=== PATIENT | male | born 1975 | race Asian ===

== ENCOUNTER 2024-11-14 09:02 | Outpatient (AMB) | payer OTHER, SELFPAY ==
--- NOTE | 2024-11-14 09:17 | MHC.OFFVIS ---
Intake Visit Reasons: numbness tingling left LE Allergies lisinopril Allergy (Unknown, Verified 11/07/24 08:28) Unknown HPI Comments Details: The patient is a 48-year-old male presenting with episodes of transient left-sided numbness and confusion. These episodes began approximately two months ago and are characterized by a sudden onset of numbness starting from the left side of the head, extending to the left foot, with each episode lasting about 40 seconds. The patient reports a concurrent state of confusion during these events but denies any headache or pain. He mentions the occurrence of these symptoms four times, notably once while driving. The temporal nature of the symptoms and lack of pain or headaches are noted. There is a history of multiple MRIs of the brain without any significant findings. The patient?s condition appears stable without progression at the time of this visit. COUNT INCLUDES THE [facility] Medical History (Updated 11/14/24 @ 09:21 by Conner Teran MD) Umbilical hernia Vitamin D deficiency Vitamin B12 deficiency OAB (overactive bladder) HLD (hyperlipidemia) Hypertension Chronic tension-type headache, not intractable Allergic rhinitis Numbness and tingling of left lower extremity Surgical History (Updated 11/07/24 @ 08:30 by Ilya Chavez CMA) H/O sinus surgery H/O cystoscopy Family History (Updated 11/07/24 @ 08:30 by Ilya Chavez CMA) Father Hypertension Review of Systems Const Details: - Neurological: Reports episodic left-sided numbness and confusion; denies headache and pain. - General: Denies disorientation outside of episodes. Physical Exam Neuro Other: Mental Status: Alert and oriented to person, place, and time. Normal attention. Normal spontaneous speech, fluency, and comprehension. No obvious issues with mood and memory. Affect is appropriate. Cranial Nerves: CN II: Visual tamez full to confrontation, visual acuity intact. CN III, IV, : Pupils equal, round, reactive to light and accommodation. Extraocular movements are normal. CN V: Facial sensation is normal. CN VII: Facial movements symmetrical. CN VIII: Hearing intact to bedside conversation is normal. CN IX, X: Palate elevates symmetrically. CN XI: Shoulder shrug and head turn symmetrical. CN XII: Tongue midline without atrophy or fasciculations. Motor: Bulk and tone normal in all extremities. No significant muscle weakness in arms and legs. No drift. Reflexes: Deep tendon reflexes 2+ and symmetric. Plantar response down-going bilaterally. Coordination: Jwyfum-[id number] and aqck-xs-aqtu testing normal. No dysmetria. Gait and Station: No obvious gait abnormality. No ataxia or instability. Extrapyramidal: Full facial expressions and blinking. No rigidity. Movements are appropriate with no tremor or abnormality. Speech: Normal; no dysarthria or tremor. Assessment & Plan Assessment & Plan (1) Seizure disorder: Code(s): G40.909 - Epilepsy, unspecified, not intractable, without status epilepticus Category: Medical Plan Impression and recommendations: 48 years old man who reported stereotypical episodes of having left-sided numbness with confusion lasting for less than a minute without any pain. He said that he had couple of MRIs of brain without any explanation. His examination was unremarkable. An EEG was requested rule out seizure disorder and he was advised to bring CTA of his brain MRI for review. Orders: Orders EEG electroencephalogram Today G40.909 - Epilepsy, unspecified, not intractable, without status epilepticus Coding Level of Care Code New Pt Level 4 (90125) Diagnoses Seizure disorder G40.909
--- OUTSIDE RECORDS SUMMARY | 2024-11-14 09:44 | XMS_ITS | Clinical Summary ---
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 Not on nick e 07/18/2022 Are you concerned about learning? Not on file 07/18/2022 No 07/18/2022 No 07/18/2022 Digital Access Answer Date Recorded No 08/16/2022 No 08/16/2022 No 08/16/2022 Reliable internet access at home? Not on file 08/16/2022 Device with a working camera? Not on file Sex and Gender Information Value Date Recorded Sex Assigned at Not on file Legal Sex Male 2:18 PM EST Gender Identity Not on file Sexual Orientation Not on file Plan of Treatment Health Maintenance Due Date Last Done Comments LIPID PANEL 1975 DEPRESSION SCREENING 1987 SMOKING Hx and SMOKELESS TOBACCO SCREENING 12/25/1988 HEPATITIS C SCREENING 12/25/1993 HIV ONE-TIME SCREENING (18-6 5 YEARS) 12/25/1993 COLOGUARD 12/25/2020 COLONOSCOPY 12/25/2020 COLORECTAL CANCER SCREENING 12/25/2020 FIT TEST 12/25/2020 FOBT 12/25/2020 SIGMOIDOSCOPY 12/25/2020 VIRTUAL COLONOSCOPY 12/25/2020 Adult Td,Tdap Booster 03/21/2023 03/21/2013 , 07/28/2008, 05/18/2008 COVID-19 VACCINE (2023-2 5 season) 2023 08/08/2020, 07/18/2020 HEPATITIS A VACCINES Aged Out 03/20/2011, 10/23/2008 No longer eligible based on patient's age to complete this topic HIB VACCINES Aged Out No longer eligi ble based on patient's age to complete this topic MENINGOCOCCAL VACCINES (ACWY) Aged Out No longer eligible based on patient's age to complete this topic MENINGOCOCCAL VACCINES (B) Aged Out N o longer eligible based on patient's age to complete this topic PNEUMOCOCCAL VACCINES (0-49 years) Aged Out No longer eligible b ased on patient's age to complete this topic Medical Devices Not on file Insurance [facility] NON NSPG PCP [employer] [facility] NON NSPG PCP [employer] NON NSPG PCP [employer] [facility] NON NSPG PCP [employer]CIAL [facility] NON NSPG PCP [employer] NON NSPG PCP [employer]CIAL [facility] NON NSPG PCP [employer] COMM[employer]CIAL [facility] NON NSPG PCP [employer] [facility] NON NSPG PCP [employer] 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 It is not the complete legal health record.[facility]
--- OUTSIDE RECORDS SUMMARY | 2024-11-14 09:44 | XMS_ITS | Clinical Summary ---
Author Organization [facility] Address [address] [place] [address] Care Team Providers Care Rn Documentation Name Role Phone Abigail Urrutia CAMMY Primary Care Provider Source Comments PLEASE NOTE, if this patient is a minor, it may be UNLAWFUL to discuss sensitive information that is contained in these records (such as FAMILY PLANNING, MENTAL HEALTH or SUBSTANCE ABUSE) with the minor patient's parent or other person without the patient's specific authorization.[facility] Allergies No known active allergies Medications ibuprofen (ADVIL,MOTRIN) 600 mg tablet Take 1 Tab by mouth 3 (three) times daily as needed for pain. Take wit h food. 90 Tab 1 6 Active cholecalciferol, vitamin D3, 2,000 unit capsuleIndications :Vitamin D deficiency Take 1 Cap by mouth once daily. 90 Cap 3 6 Active oxybutynin (DITROPAN-XL) 5 mg 24 hr tabletIndications: OAB (overactive bladder) Take 1 Tab by mouth once daily. Swallow whole. Do not break, crush, or chew. 30 Tab 2 6 Active sildenafil (VIAGRA) 100 mg tabletIndications: Erectile dysfunction due to arterial insufficiency Take 1 Tab by mouth once daily as needed for erectile dysfunction. 10 Tab 0 6 Active cetirizine (ZYRTEC) 10 mg tabletIndications: Perennial allergic rhinitis, unspecified allergic rhinitis trigger Take 1 Tab by mouth once daily. 30 Tab 1 6 Active fluticasone (FLONASE) 50 mcg/actuation nasal sprayIndications:P erennial allergic rhinitis, unspecified allergic rhinitis trigger Place 1 [place] into the nostril(s) once daily 16 g 1 7 Active simvastatin (ZOCOR) 10 mg tablet Take 1 Tab by mouth nightly at bedtime Further refills requires appt with new PCP 30 Tab 8 Active lisinopril (PRINIVIL,ZESTRIL) 20 mg tabletIndications: Essential hypertension TAKE 1 TAB BY MOUTH ONCE DAILY FURTHER REFILLS REQUIRES APPT WITH NEW PCP 30 Tab 8 Active Active Problems Problem Noted Date Diagnosed Date OAB (overactive bladder) 11/16/2015 Overview (11/16/2015): F/u urology Erectile dysfunction due to arterial insufficien cy 11/16/2015 Seborrheic dermatitis of scalp 05/30/2014 Hyperlipidemia LDL goal <100 03/22/2013 HTN (hypertension) 11/15/2012 Allergic rhinosinusitis 11/10/2012 Overview (06/28/2014): S/p Bilateral endoscopic maxillary antrostomy with tissue removal from the maxillary sinus and bilateral endoscopic anterior ethmoidectomies for chronic maxillary and anterior ethmoid sinusitis 08/2013. Acne 11/10/2012 Bilateral hydrocele 04/10/2011 Overview (08/08/2015): US 04/10/11 revealed small simple right hydrocele. Repeat US 08/01/15 = bilateral hydroceles small left, small to mod right. Vitamin D deficiency 12/20/2010 Overview (01/05/2013): =17. History of kidney stones 10/23/2008 Overview (01/05/2013): Urology f/u. Cystoscopy with ureteroscopy & lithotripsy for ureteral calculus 01/2010. History of positive PPD 08/28/2008 Overview (08/23/2016): =10 mm 08/03/08. Tx at [facility] x 9 months with INH in 2009. Negative CXR 08/16/15 at [facility] Resolved Problems Problem Noted Date Diagnosed Date Resolved Date Elevated LFTs 01/07/2013 06/04/2015 Ingrown left greater toenail 11/10/2012 01/05/2013 Immunizations Immunization Administration Dates Next Due Flu, Preservative Free 12/27/2015 Hep A, adult 03/20/2011,10/23/2008 Hep B, Adult/Adol (SINLHIS-W-JOETJ/RECOMBIVAX-ADULT) 08/02/2010,10/23/2008,08/28/2008 INFLUENZA, SEASONAL, INJECTABLE 03/21/2013,12/17 MMR (MMR II/Priorix) 07/28/2008,05/18/2008 TDAP 03/21/2013 Td (adult),2 Lf tetanus toxo id (TDVAX), preservative free 07/28/2008,05/18/2008 Varicella (Varivax), Live Vaccine 08/15/2016 Social History Tobacco Use Types Packs/Day Years Used Date Smoking Tobacco: Never Smokeless Tobacco: Never Alcohol Use Standard Drinks/Week Comments No 0 (1 standard drink = 0.6 oz pur e alcohol) Social Connections Answer Date Recorded Connectedness 0 12/09/2023 Financial Resource Strain Answer Date R ecorded Financial Resource Strain 0 2018 Stress Answer Date Recorded Stress 0 11/13/2018 Physical Activity Answer Date Recorded Physical Activity 0 11/13/2018 Food Insecurity Answer Date Recorded Food 0 12/17/2023 Transportation Needs Answer Date Record ed Transportation 0 11/13/2018 Housing Stability Answer Date Recorded Housing 0 11/13/2018 Safety and Environment Answer Date Beka rded Safety 0 11/13/2018 Utilities Answer Date Recorded Utilities 0 11/13/2018 Employment Answer Date Recorded Stress 0 12/09/2023 Sex and Gender Information Value Date Recorded Sex Assigned at Not on file Legal Sex Male 11:36 AM PDT Gender Identity Not on file Sexual Orientation Not on file Last Filed Vital Signs Vital Sign Reading Time Taken Comments Blood Pressure 147/100 05/06/2016 3:34 PM EST Pulse 72 05/06/2016 3:34 PM EST Temperature 36.4 C (97.5 F) 05/06/2016 3:34 PM EST Respiratory Rate 12 05/06/2016 3:34 PM EST Oxygen Saturation 97% 11/16/2015 2:03 PM EDT Inhaled Oxygen Concentration - - Weight 78.5 kg (173 lb) 05/06/2016 3:34 PM EST Height 157.5 cm (5' 2 ) 05/06/2016 3:34 PM EST Body Mass Index 31.64 05/06/2016 3:34 PM EST Plan of Treatment Not on file Insurance [place] Care Teams Rn Documentation Relationship Specialty Start Date End Date Abigail Urrutia FNP [address] [place] [address] PCP - General 10/14/18
--- OUTSIDE RECORDS SUMMARY | 2024-11-14 09:44 | XMS_ITS | Clinical Summary ---
Author Organization [facility] [address] [facility] lding Address [address] [place] [address] Phone Care Team Providers Care Graduate Student Instructor Name Role Phone Cheryle Whitman MD Primary Care Provider Allergies Active Allergy Reactions Criticality Noted Date Comments Lisinopril Cough 12/23/2022 Pollen Extracts 07/29/2022 Medications fluticasone propionate (FLONASE) 50 mcg/actuation nasal spray SPRAY 1 SPRAY IN EACH NOSTRIL 2 TIMES DAILY 07/29/2022 Active valsartan (DIOVAN) 80 mg tablet Take 1 tablet (80 mg total) by mouth 1 (one) time each day. 90 each 08/24/2024 Active cholecalciferol (VITAMIN D-3) 25 mcg (1,000 unit) capsule Take 1 capsule (1,000 Units total) by mouth 1 (one) time each day. 90 capsule 1 08/24/2024 Active metroNIDAZOLE (METROGEL) 0.75 % gelIndications: Rosacea Apply twice daily to rosacea 45 g 2 08/24/2024 Active aspirin 81 mg EC tablet Take 1 tablet (81 mg total) by mouth 1 (one) time each day. 09/04/2024 Active Vitamin B-12 1,000 mcg tablet Take 1 tablet (1,000 mcg total) by mouth 1 (one) time each day. 90 tablet 1 10/04/2024 Active Active Problems Problem Noted Date Diagnosed Date Umbilical hernia 08/24/2024 Vitamin B12 deficiency 06/03/2021 Erectile dysfunction 02/03/2018 Hydrocele, bilateral 02/03/2018 Overview (12/17/2023): US 04/10/11 - smal simple R hydroceles. Repeat US 08/01/15 bilateral: small L, small to moderate R OAB (overactive bladder) 02/03/2018 Overview (12/17/2023): Follow with Urology Vitamin D deficiency 02/03/2018 Chronic tension-type headache, not intractable 0 12/16/2017 Allergic rhinitis 11/24/2017 Overview (12/17/2023): Chronic sinusitis-revision b/l endoscopic total ehtmoidectomy, max antrostomy, spheindotomy, b/l balloon frontal sinusotomy, placement of propel stents and brain lab optical tracking guidance- 03/[address] Daily Essential hypertension, benign 11/13/2017 Hyperlipidemia 11/13/2017 Overview (12/17/2023): 05/2019- ASCVD 2.1% Encounters Date Type Department Care Team Description 10/04/2024 8:00 AM EDT Office Visit Adult [facility] [address] [place] [phone] Lang Mckinley PA Paresthesia of left upper and lower extremity (Primary Dx); Dizziness; Essential hypertension, benign; Hyperlipidemia, unspecified hyperlipidemia type 09/30/2024 Telephone Adult [facility] [address] [place] [phone] Cheryle Whitman MD Numbness; Eye Pain 09/09/2024 10:30 AM EDT Office Visit Adult [facility] [address] [place] [phone] Cheryle Whitman MD Hospital discharge follow-up (Primary Dx); Numbness; Paresthesias; Primary hypertension; Mixed hyperlipidemia 09/06/2024 Telephone Adult [facility] [address] [place] [phone] Cheryle Whitman MD Hospital Follow-up 08/24/2024 7:30 AM EDT Office Visit Adult Medicine - [place] [address] [place] [phone] Lang Mckinley PA Swelling of lower extremity (Primary Dx); Benign hypertension; Rosacea 08/22/2024 Telephone Adult Medicine - [place] [address] [place] [phone] Cheryle Whitman MD ER Follow-Up; Lower Extremity Edema (Both legs) from Last 3 Months Immunizations Name Administration Dates Next Due Hep A, Unspecified 03/21/2013 Hepatitis A Adult (Havrix; V aqta) 19yo and older 03/20/2011,10/23/2008 Hepatitis B Pediatric (Enger ix B; Recombivax HB) to less than 20 yo 08/02/2010,10/23/2008,08/28/2008 Influenza Quadravalent, MDCK , 0.5ml, preservative free (Flucelvax) 6mo and older 01/30/2023,04/03/2021,06/10/2019 Influenza trivalent, MDCK, 0 .5mL, preservative free (Flucelvax) 6mo and older 05/17/2024 Influenza trivalent, with pr eservative (Fluzone; Afluria) 6mo and older 12/27/2015 MMR, measles mumps and rubel la Live (Priorix; M-M-R II) 12mo and older 07/28/2008,05/18/2008 Td Tetanus diptheria (Tdvax) 7yo and older 07/28,05/18/2008 Tdap Tetanus diptheria acell ular pertussis (Boostrix; Adacel) 7yo and older 07/29/2022,03/21/2013 Varicella live (Varivax) 12mo and older 08/16/19 17 Surgical History Surgery Date Site/Laterality Comments CYSTOSCOPY 01/2010 PROCEDURE: HISTORICAL CYSTOSCOPY; COMMENT: Ureteroscopy & lithotripsy- stones OTHER SURGICAL HISTORY PROCEDURE: HISTORY OTHER; COMMENT: Dr. Traore - SINUS SURGERY Medical History Medical History Date Comments Acne 02/03/2018 DX:Acne Allergic rhinitis 11/24/2017 DX:Allergic rh initis; COMMENT: Allergy shots with Dr. Daily Chronic tension-type headach e, not intractable 12/16/2017 DX:Chronic tension-type head ache, not intractable Dizziness 12/16/2017 DX:Dizziness Erectile dysfunction 02/03/2018 DX:Erectile dysfunction Essential hypertension, benign 11/13/2017 D X:Essential hypertension, benign History of kidney stones 02/03/2018 DX:Hist ory of kidney stones; COMMENT: 01/2010 - Cystoscopy, Ureteroscopy & lithotripsy History of positive PPD 02/03/2018 DX:Histo ry of positive PPD; COMMENT: 08/03/08 - 10 mm. Treated at [facility] x 9 months with INH in 2009. Negative CXR 08/16/15 at [facility] Hydrocele, bilateral 02/03/2018 DX:Hydrocel e, bilateral; COMMENT: US 04/10/11 - smal simple R hydroceles. Repeat US 08/01/15 bilateral: small L, small to moderate R Hypercholesteremia 11/13/2017 DX:Hyperchole steremia; COMMENT: ASCVD 1.4% Insomnia 02/03/2018 DX:Insomnia Nonallopathic lesion of thoracic region 01/21/20 18 DX:Nonallopathic lesion of thoracic region OAB (overactive bladder) 02/03/2018 DX:OAB (overactive bladder); COMMENT: Follow with Urology Obesity (BMI 30-39.9) 12/16/2017 DX:Obesity (BMI 30-39.9) Seborrheic dermatitis of scalp 02/03/2018 D X:Seborrheic dermatitis of scalp Segmental and somatic dysfun ction of cervical region 01/20/2018 DX:Segmental and somatic dysfunction of cervical region Sprain of thoracic region 01/20/2018 DX:Spr ain of thoracic region Vitamin D deficiency 02/03/2018 DX:Vitamin D deficiency Family History Medical History Relation Name Comments Hypertension Father Relation Name Status Comments Brother Alive Father Maternal Grandfather Maternal Grandmother Mother Alive Paternal Grandfather Paternal Grandmother Sister 1 Alive Sister 2 Alive Sister 3 Alive Social History Tobacco Use Types Packs/Day Years Used Date Smoking Tobacco: Never Smokeless Tobacco: Never Tobacco Cessation:Counseling Given: Not Answered Alcohol Use Standard Drinks/Week Comments No 0 (1 standard drink = 0.6 oz pur e alcohol) Sex and Gender Information Value Date Recorded Sex Assigned at Not on file Legal Sex Male 3:54 AM EST Gender Identity Not on file Sexual Orientation Not on file Obstetrics History Last Filed Vital Signs Vital Sign Reading Time Taken Comments Blood Pressure 120/83 10/04/2024 8:01 AM EDT Pulse 67 10/04/2024 8:01 AM EDT Temperature 36.3 C (97.3 F) 10/04/2024 7:54 AM EDT Respiratory Rate 16 10/04/2024 7:54 AM EDT Oxygen Saturation - - Inhaled Oxygen Concentration - - Weight 78 kg (172 lb) 10/04/2024 7:54 AM EDT Height 165.5 cm (5' 5.16 ) 10/04/2024 7:54 AM ED T Body Mass Index 28.48 10/04/2024 7:54 AM EDT Plan of Treatment Upcoming Encounters Date Type Department Care Team (Late st Contact Info) Description 2024 1:15 PM EDT Office Visit Adult Medicine - [place] [address] [place] [phone] Lang Mckinley PA [address] [place] [address] 01/02/2025 10:30 AM EDT Office Visit General Surgery - [place] [address] [phone] Nestor Lima MD [address] [phone] Health Maintenance Due Date Last Done Comments Hepatitis B Vaccines (1 of 3 - 19+ 3-dose series) 12/25/1994 08/02/2010, 10/23/2008, 08/28/2008 HIV Screening 03/01/2022 Hepatitis C Screening 03/01/2022 Social Influencers of Health Screening 03/01/2022 COVID-19 Vaccine ( season) 2023 03/06/2021, 08/08/2020, 07/18/2020 Depression Screening 03/23/2024 Influenza Vaccine (#1) 2024 , 01/30/2023, 04/03/2021, Additional history exists Hypertension/CHF/CAD Annual BMP Blood Test 05/17/2025 05/17/2024, 07/01/2023, 05/19/2016 Colorectal Cancer Screening: Colonoscopy 10/02/2025 Postponed from 03/01/2022 (Not clinically appropriate to address at this time) Cholesterol Screening (Lipid Panel) 05/17/2029 05/17/2024, 07/01/2023, 05/19/2016 DTaP,Tdap,and Td Vaccines (5 - Td or Tdap) 07/29/2032 07/29/2022, 03/21/2013, 07/28/2008, Additional history exists MMR Vaccines Aged Out 07/28/2008, 05/18/2008 No lo nger eligible based on patient's age to complete this topic Hepatitis A Vaccines Aged Out 03/21/2013, 03/20/2011, 10/23/2008 No longer eligible based on patient's age to complete this topic Varicella Vaccines Aged Out 08/15/2016 No longer eligible based on patient's age to complete this topic HIB Vaccines Aged Out No longer eligi ble based on patient's age to complete this topic HPV Vaccines Aged Out No longer eligi ble based on patient's age to complete this topic IPV Vaccines Aged Out No longer eligi ble based on patient's age to complete this topic Meningococcal ACWY Vaccine Aged Out N o longer eligible based on patient's age to complete this topic Meningococcal B Vaccine Aged Out No l onger eligible based on patient's age to complete this topic Pneumococcal Vaccine: Pediatrics (0 to 5 Years) and At-Risk Patients (6 to 49 Years) Aged Out No longer eligible b ased on patient's age to complete this topic RSV Immunization Patients Under 20 months Aged Out No longer eligible b ased on patient's age to complete this topic Procedures Procedure Name Priority Date/Time Associated Diagnosis Comments VITAMIN B1 Routine 09/09/2024 11:07 AM EDT Hospital discharge follow-up Numbness Paresthesias Primary hypertension Mixed hyperlipidemia VITAMIN B2 Routine 09/09/2024 11:07 AM EDT Hospital discharge follow-up Numbness Paresthesias Primary hypertension Mixed hyperlipidemia THYROID STIMULATING HORMONE WITH REFLEX TO FREE T4 AND FREE T3 Routine 09/09/2024 11:07 AM EDT Hospital discharge follow-up Numbness Paresthesias Primary hypertension Mixed hyperlipidemia VITAMIN D 25 HYDROXY Routine 09/09/2024 11:07 AM EDT Hospital discharge follow-up Numbness Paresthesias Primary hypertension Mixed hyperlipidemia COMPREHENSIVE METABOLIC PANEL Routine 05/17/2024 1:36 PM EST Adult general medical examination Essential hypertension, benign Hyperlipidemia, unspecified hyperlipidemia type LIPID PANEL WITH REFLEX TO DIRECT LDL Routine 05/17/2024 1:36 PM EST Adult general medical examination Essential hypertension, benign Hyperlipidemia, unspecified hyperlipidemia type from Last 3 Months or Most Recently Relevant to Health Maintenance Results * Thyroid stimulating hormone with reflex to free t4 and free t3 (09/09/2024 11:07 AM EDT) TSH 3.99 0.40 - 4.00 mcIU/mL LAB CHEMISTRY METHOD 09/09/2024 1:17 PM EDT [facility] Blood Venous blood specimen / Unknown Venipuncture / Unknown 09/09/2024 11:07 AM EDT 09/09/2024 11:07 AM EDT us Cheryle Whitman MD LAB BLOOD ORDERABLES F inal Result [facility] [address] [place] [address], * (ABNORMAL) Vitamin B2 (09/09/2024 11:07 AM EDT) Vitamin B2 (Riboflavin) 42.2(H) 6.2 - 39.0 nmol/L 09/15/2024 3:05 PM EDT [facility] Comment: Vitamin supplementation within 24 hours prior to blood draw may affect the accuracy of results. This test was developed and its analytical performance characteristics have been determined by [employer], [place], [place]. It has not been cleared or approved by the FDA. This assay has been validated pursuant to the CLIA regulations and is used for clinical purposes. Test Performed by [facility], [place] [facility], [address] [place], [place] Santos Joshi M.D., Ph.D., Director of Laboratories , CLIA [id number] Blood Venous blood specimen / Unknown Venipuncture / Unknown 09/09/2024 11:07 AM EDT 09/09/2024 11:07 AM EDT Cheryle Whitman MD LAB BLOOD ORDERABLES F inal Result [facility] [address] [place] [address] * Vitamin D 25 hydroxy (09/09/2024 11:07 AM EDT) Pathologist [facility] Vit D, 25-Hydroxy 32.1 30.0 - 80.0 ng/mL LAB CHEMISTRY METHOD 09/09/2024 1:17 PM EDT [facility] Blood Venous blood specimen / Unknown Venipuncture / Unknown 09/09/2024 11:07 AM EDT 09/09/2024 11:07 AM EDT Cheryle Whitman MD LAB BLOOD ORDERABLES F inal Result [facility] [address] [place] [address], [place] [phone] * Vitamin B1 (09/09/2024 11:07 AM EDT) Pathologist [facility] Vitamin B1 Whole Blood 79 38 - 122 ug/L 09/14/2024 6:[address] [facility] Comment: This test was developed and the performance characteristics determined by [facility]. It has not been cleared or approved by the FDA. The laboratory is regulated under CLIA as qualified to perform high-complexity testing. This test is used for patient testing purposes. It should not be regarded as investigational or for research. Test performed at [facility], [address], [place] [address] Patsy Schwarz MD, PhD - [address] Drive Blood Venous blood specimen / Unknown Venipuncture / Unknown 09/09/2024 11:07 AM EDT 09/09/2024 11:07 AM EDT us Cheryle Whitman MD LAB BLOOD ORDERABLES F inal Result [facility] [address] [place] [address] * (ABNORMAL) Lipid panel with reflex to direct LDL (05/17/2024 1:36 PM EST) Cholesterol 154 0 - 200 mg/dL LAB CHEMISTRY METHOD 05/17/2024 3:19 PM [facility] Triglycerides 120 0 - 150 mg/dL LAB CHEMISTRY METHOD 05/17/2024 3:19 PM EST [facility] HDL 33(L) >=40 mg/dL LAB CHEMISTRY METHOD 05/17/2024 3:19 PM [facility] LDL Calculated 97 0 - 100 mg/dL LAB CHEMISTRY METHOD 05/17/2024 3:19 PM [facility] VLDL Cholesterol Jules 24 mg/dL LAB CHEMISTRY METHOD 05/17/2024 3:19 PM EST [facility] Non HDL Chol. (LDL+VLDL) 121 <145 mg/dL LAB CHEMISTRY METHOD 05/17/2024 3:19 PM [facility] Chol/HDL Ratio 4.7(H) 0.0 - 4.4 LAB CHEMISTRY METHOD 05/17/2024 3:19 PM [facility] Blood Venous blood specimen / Unknown Venipuncture / Unknown 05/17/2024 1:36 PM EST 05/17/2024 1:36 PM EST us Lang CANO LAB BLOOD ORDERABLES Final Re sult [facility] [address] [place] [address], * (ABNORMAL) Comprehensive metabolic panel (05/17/2024 1:36 PM EST) Sodium 139 133 - 145 mmol/L LAB CHEMISTRY METHOD 05/17/2024 3:19 PM [facility] Potassium 3.3(L) 3.5 - 5.5 mmol/L LAB CHEMISTRY METHOD 05/17/2024 3:19 PM [facility] Chloride 104 96 - 110 mmol/L LAB CHEMISTRY METHOD 05/17/2024 3:19 PM [facility] CO2 32 21 - 32 mmol/L LAB CHEMISTRY METHOD 05/17/2024 3:19 PM [facility] Anion Gap 3 3 - 11 LAB CHEMISTRY METHOD 05/17/2024 3:19 PM [facility] Glucose 101(H) 70 - 100 mg/dL LAB CHEMISTRY METHOD 05/17/2024 3:19 PM [facility] BUN 9 5 - 25 mg/dL LAB CHEMISTRY METHOD 05/17/2024 3:19 PM [facility] Creatinine 0.78 0.70 - 1.30 mg/dL LAB CHEMISTRY METHOD 05/17/2024 3:19 PM [facility] eGFR 110 >=60 mL/min/1. 73m2 LAB CHEMISTRY METHOD 05/17/2024 3:19 PM [facility] Comment:Calculation based on the Chronic Kidney Disease Epidemiology Collaboration (CKD-EPI) equation refit without adjustment for race. BUN/Creatinine Ratio 11.5 LAB CHEMISTRY METHOD 05/17/2024 3:19 PM [facility] Calcium 9.4 8.5 - 10.5 mg/dL LAB CHEMISTRY METHOD 05/17/2024 3:19 PM EST [facility] AST (SGOT) 33 10 - 42 unit/L LAB CHEMISTRY METHOD 05/17/2024 3:19 PM [facility] ALT (SGPT) 88(H) 10 - 60 unit/L LAB CHEMISTRY METHOD 05/17/2024 3:19 PM [facility] Alkaline Phosphatase 133(H) 42 - 121 unit/L LAB CHEMISTRY METHOD 05/17/2024 3:19 PM [facility] Total Protein 7.2 6.0 - 8.0 g/dL LAB CHEMISTRY METHOD 05/17/2024 3:19 PM [facility] Albumin 3.9 3.2 - 5.0 g/dL LAB CHEMISTRY METHOD 05/17/2024 3:19 PM [facility] Total Bilirubin 0.6 0.0 - 1.4 mg/dL LAB CHEMISTRY METHOD 05/17/2024 3:19 PM [facility] Blood Venous blood specimen / Unknown Venipuncture / Unknown 05/17/2024 1:36 PM EST 05/17/2024 1:36 PM EST Lang CANO LAB BLOOD ORDERABLES Final Re sult [facility] [address] [place] [address], from Last 3 Months or Most Recently Relevant to Health Maintenance Additional Health Concerns Infection Onset Date Last Indicated Norovirus 05/19/2024 05/19/2024 Insurance [facility] Care Teams Graduate Student Instructor Relationship Specialty Start Date End Date Cheryle Whitman MD [address] [place] [id number] PCP - General Internal Medicine 04/02/21
== END 2024-11-14 09:34 | disposition home or self-care (01) ==
LOC: HO.HSM 09:03
PROVIDERS: PCP Family Medicine; Visit Provider Psychiatry & Neurology Neurology
DX: G40.909 Epilepsy, unspecified, not intractable, without status epilepticus (principal)
CPT/HCPCS: 99204

== ENCOUNTER → 2024-11-14 09:02 | Outpatient (BNVA) | payer OTHER, SELFPAY | PROVIDERS: PCP Family Medicine; Visit Provider Psychiatry & Neurology Neurology | DX: G40.909 Epilepsy, unspecified, not intractable, without status epilepticus (principal) | CPT/HCPCS: 99202 ==

== ENCOUNTER 2024-12-01 09:00 | Outpatient (REF) | payer OTHER, SELFPAY ==
--- OUTSIDE RECORDS SUMMARY | 2024-12-01 10:14 | XMS_ITS | Clinical Summary ---
Author Organization [facility] [address] [facility] l[address] Address [address] [place] [address] Phone Care Team Providers Care Property Accountant Name Role Phone Cheryle Whitman MD Primary Care Provider Allergies Active Allergy Reactions Criticality Noted Date Comments Lisinopril Cough 12/23/2022 Pollen Extracts 07/29/2022 Medications fluticasone propionate (FLONASE) 50 mcg/actuation nasal spray SPRAY 1 SPRAY IN EACH NOSTRIL 2 TIMES DAILY 3 Active cholecalcifero l (VITAMIN D-3) 25 mcg (1,000 unit) capsule Take 1 capsule (1,000 Units total) by mouth 1 (one) time each day. 90 capsule 1 5 Active metroNIDAZOLE (METROGEL) 0.75 % gelIndications :Rosacea Apply twice daily to rosacea 45 g 2 5 04/21/19 26 Active aspirin 81 mg EC tablet Take 1 tablet (81 mg total) by mouth 1 (one) time each day. 5 Active Vitamin B-12 1,000 mcg tablet Take 1 tablet (1,000 mcg total) by mouth 1 (one) time each day. 90 tablet 1 5 Active valsartan (DIOVAN) 80 mg tablet TAKE 1 TABLET BY MOUTH 1 TIME EACH DAY. 90 tablet 5 Active valsartan (DIOVAN) 80 mg tablet Take 1 tablet (80 mg total) by mouth 1 (one) time each day. 90 each 5 11/25/19 25 Discontinued Active Problems Problem Noted Date Diagnosed Date [...] 10/04/2024 8:00 AM EDT Office Visit Adult [address] [phone] Lang Mckinley PA Paresthesia of left upper and lower extremity (Primary Dx); Dizziness; Essential hypertension, benign; Hyperlipidemia, unspecified hyperlipidemia type 09/30/[address] [facility] [address] [place] [phone] Cheryle Whitman MD 09/09/2024 10:30 AM EDT Office Visit [address] [phone] Cheryle Whitman MD Hospital discharge follow-up (Primary Dx); Numbness; Paresthesias; Primary hypertension; Mixed hyperlipidemia 09/06/[address] [facility] [address] [place] [address] Cheryle Whitman MD from Last 3 Months Immunizations Name Administration [...] COMMENT: 08/03/08 - 10 mm. Treated at [facility] x 9 months with INH in 2009. Negative CXR 08/16/15 at [facility] Hydrocele, bilateral 02/03/2018 DX:Hydrocel e, bilateral; [...] PM EDT Office Visit Adult Medicine - [place] [address] [place] [phone] Lang Mckinley PA [address] [place] [address] 01/02/2025 10:30 AM EDT Office Visit General Surgery - [address] [place] [phone] Nestor Lima MD [address] [place] [phone] Health Maintenance Due Date Last Done Comments Hepatitis B Vaccines (1 of 3 - 19+ 3-dose series) 12/25/1994 08/02/2010, 10/23/2008, 08/28/2008 HIV Screening 03/01/2022 Hepatitis C Screening 03/01/2022 Social Influencers of Health Screening 03/01/2022 Depression Screening 03/23/2024 COVID-19 Vaccine ( season) 2024 03/06/2021, 08/08/2020, 07/18/2020 Influenza Vaccine (#1) 2024 , 01/30/2023, 04/03/2021, [...] LAB CHEMISTRY METHOD 09/09/2024 1:17 PM EDT [facility] Blood Venous blood specimen / Unknown Venipuncture / Unknown 09/09/2024 11:07 AM EDT 09/09/2024 11:07 AM EDT us Cheryle Whitman MD LAB BLOOD ORDERABLES F inal Result [facility] [address] [place] [address], [place] [phone] * (ABNORMAL) Vitamin B2 (09/09/2024 11:07 AM EDT) Pathologist [facility] Vitamin B2 (Riboflavin) 42.2(H) 6.2 - 39.0 nmol/L 09/15/2024 3:05 PM EDT [facility] Comment: Vitamin supplementation within 24 hours prior to blood draw may affect the accuracy of results. This test was developed and its analytical performance characteristics have been determined by [facility] [place]. It has not been cleared or approved by the FDA. This assay has been validated pursuant to the CLIA regulations and is used for clinical purposes. Test Performed by [facility], [employer], [address] [place] [address] Santos Joshi M.D., Ph.D., Director of Laboratories , CLIA [id number] Blood Venous blood specimen / Unknown Venipuncture / Unknown 09/09/2024 11:07 AM EDT 09/09/2024 11:07 AM EDT Cheryle Whitman MD LAB BLOOD ORDERABLES F inal Result [facility] [address] [place] [address] * Vitamin D 25 hydroxy (09/09/2024 11:07 AM EDT) [facility] Vit D, 25-Hydroxy 32.1 30.0 - 80.0 ng/mL LAB CHEMISTRY METHOD 09/09/2024 1:17 PM EDT [facility] Blood Venous blood specimen / Unknown Venipuncture / Unknown 09/09/2024 11:07 AM EDT 09/09/2024 11:07 AM EDT Cheryle Whitman MD LAB BLOOD ORDERABLES F inal Result Performing Organization Address City/[facility] Co de Phone Number [facility] [address] [place] [address], [place] [phone] * Vitamin B1 (09/09/2024 11:07 AM EDT) [facility] Vitamin B1 Whole Blood 79 38 - 122 ug/L 09/14/2024 6:40 AM EDT [facility] Comment: This test was developed and the performance characteristics determined by [facility]. It has not been cleared or approved by the FDA. The laboratory is regulated under CLIA as qualified to perform high-complexity testing. This test is used for patient testing purposes. It should not be regarded as investigational or for research. Test performed at [facility], [address], [place] [address] Patsy Schwarz MD, PhD - Guidance Services Coordinator Blood Venous blood specimen / Unknown Venipuncture / Unknown 09/09/2024 11:07 AM EDT 09/09/2024 11:07 AM EDT us Cheryle Whitman MD LAB BLOOD ORDERABLES F inal Result [place] [address] * (ABNORMAL) Lipid panel with reflex to direct LDL (05/17/2024 1:36 PM EST) Cholesterol 154 0 - 200 mg/dL LAB CHEMISTRY METHOD 05/17/2024 3:19 PM EST [facility] Triglycerides 120 0 - 150 mg/dL LAB CHEMISTRY METHOD 05/17/2024 3:19 PM EST [facility] HDL 33(L) >=40 mg/dL LAB CHEMISTRY METHOD 05/17/2024 3:19 PM EST [facility] LDL Calculated 97 0 - 100 mg/dL LAB CHEMISTRY METHOD 05/17/2024 3:19 PM EST [facility] VLDL Cholesterol Jules 24 mg/dL LAB CHEMISTRY METHOD 05/17/2024 3:19 PM EST [facility] Non HDL Chol. (LDL+VLDL) 121 <145 mg/dL LAB CHEMISTRY METHOD 05/17/2024 3:19 PM EST [facility] Chol/HDL Ratio 4.7(H) 0.0 - 4.4 LAB CHEMISTRY METHOD 05/17/2024 3:19 PM EST [facility] Blood Venous blood specimen / Unknown Venipuncture / Unknown 05/17/2024 1:36 PM EST 05/17/2024 1:36 PM EST us Lang CANO LAB BLOOD ORDERABLES Final Re sult [facility] [address] [place] [address], [place] [phone] * (ABNORMAL) Comprehensive metabolic panel (05/17/2024 1:36 [...] [facility] AST (SGOT) 33 10 - 42 unit/L LAB CHEMISTRY METHOD 05/17/2024 3:19 PM [facility] ALT (SGPT) 88(H) 10 - 60 unit/L LAB CHEMISTRY METHOD 05/17/2024 3:19 PM [facility] Alkaline Phosphatase 133(H) 42 - 121 unit/L LAB CHEMISTRY METHOD 05/17/2024 3:19 PM EST [facility] Total Protein 7.2 6.0 - 8.0 g/dL LAB CHEMISTRY METHOD 05/17/2024 3:19 PM EST [facility] Albumin 3.9 3.2 - 5.0 g/dL LAB CHEMISTRY METHOD 05/17/2024 3:19 PM EST [facility] Total Bilirubin 0.6 0.0 - 1.4 mg/dL LAB CHEMISTRY METHOD 05/17/2024 3:19 PM EST [facility] Blood Venous blood specimen / Unknown Venipuncture / Unknown 05/17/2024 1:36 PM EST 05/17/2024 1:36 PM EST us Lang CANO LAB BLOOD ORDERABLES Final Re sult [facility] [address] [place] [address], from Last 3 Months or Most Recently Relevant to Health Maintenance Additional Health Concerns Infection Onset Date Last Indicated Norovirus 05/19/2024 05/19/2024 Insurance [facility] Care Teams Property Accountant Relationship Specialty Start Date End Date Cheryle Whitman MD [address] [place] [id number] PCP - General Internal Medicine 04/02/21
--- OUTSIDE RECORDS SUMMARY | 2024-12-01 10:14 | XMS_ITS | Clinical Summary ---
Author Organization [facility] Address [address] [place], [place] [address] Phone Care Team Providers Care Document Control Coordinator Name Role Phone Mer Campbell MD Primary [...] Td,Tdap Booster 03/21/2023 03/21/2013 , 07/28/2008, 05/18/2008 INFLUENZA VACCINE (#1) 2024 0, 12/27/2015 COVID-19 VACCINE (3 - 2024-2 6 season) 2024 08/08/2020, 07/18/2020 HEPATITIS A VACCINES Aged Out [...] topic Medical Devices Not on file Insurance PCP [facility] Address: [address] [address] [place] [address] [facility] PCP [facility] Address[place] [address] [place] [address] [employer] NON NSPG PCP [employer] [place] NON NSPG PCP [employer] [place] NON NSPG PCP [employer] NON NSPG PCP [employer] [address] [address] NON NSPG PCP [employer] NON NSPG PCP [facility] NON NSPG PCP [facility] [place] [id number] Care Teams Document Control Coordinator Relationship Specialty Start Date End Date Mer Campbell MD [address] [place] [phone] PCP - General Internal Medicine 02/07/20 Additional Source Comments The information contained in this document represents components of the legal health record. It is not the complete legal health record.[facility]
--- OUTSIDE RECORDS SUMMARY | 2024-12-01 10:14 | XMS_ITS | Clinical Summary ---
Author Organization [facility] Address [address] [place] [address] Care Team Providers Care Double Backer Name Role Phone Abigail Urrutia CAMMY Primary [...] rhinitis, unspecified allergic rhinitis trigger Place 1 Marceline into the nostril(s) once daily 16 g [...] Overview (08/23/2016): =10 mm 08/03/08. Tx at [facility] x 9 months with INH in 2009. Negative CXR 08/16/15 at [facility] Resolved Problems Problem Noted Date Diagnosed Date Resolved Date Elevated LFTs 01/07/2013 06/04/2015 Ingrown left greater toenail 11/10/2012 01/05/2013 Immunizations Immunization Administration Dates Next Due Flu, Preservative Free 12/27/2015 Hep A, adult 03/20/2011,10/23/2008 Hep B, Adult/Adol ([id number]/RECOMBIVAX-ADULT) 08/02/2010,10/23/2008,08/28/2008 INFLUENZA, SEASONAL, INJECTABLE 03/21/2013,12/17 MMR (MMR [...] Plan of Treatment Not on file Insurance [place] Care Teams Double Backer Relationship Specialty Start Date End Date Abigail Urrutia FNP [address] [place] [address] PCP - General 10/14/18
--- NOTE | 2024-12-01 10:33 | EEG_ITS ---
Roomed Performed:?402 Reason: left side numbness and confusion, Epilepsy History: (include when last event occurred)?memory loss during driving, Medication: vitamin D, aspirin 81 Technical description:? Photic stimulation: Completed Hyperventilation:?Completed Behavioral state: restless State of Consciousness: awake Skull defect: none Sedation: none Handedness: Right Duration of study:?30 min ? ? This is a 16 channel EEG with an EKG lead. Patient is reported awake during the tracing. Background EEG rhythm is 10-12 hertz 5-50 microvolt posteriorly and lower amplitude fast anteriorly. Photic stimulation does not produce any significant driving. Hyperventilation is unremarkable. Cardiac lead does not reveal any significant abnormality. Some muscle and lead artifacts are noted. No sharp wave spikes or paroxysmal tendency noted. Impression: Unremarkable EEG. MTDD
== END 2024-12-01 09:01 | disposition home or self-care (01) ==
LOC: HO.NEURO 09:00
PROVIDERS: PCP Family Medicine; Visit Provider Psychiatry & Neurology Neurology
DX: G40.909 Epilepsy, unspecified, not intractable, without status epilepticus (principal)
CPT/HCPCS: 95816

== ENCOUNTER → 2024-12-01 10:33 | Outpatient (BNV) | payer OTHER, SELFPAY | PROVIDERS: PCP Family Medicine; Visit Provider Psychiatry & Neurology Neurology | DX: G40.909 Epilepsy, unspecified, not intractable, without status epilepticus (principal) | CPT/HCPCS: 95816 ==

== ENCOUNTER 2024-12-05 14:42 | Outpatient (AMB) | payer OTHER, SELFPAY ==
--- NOTE | 2024-12-05 14:45 | A.OFFVIS_ITS ---
Intake Visit Reasons: RESULTS Allergies lisinopril Allergy (Unknown, Verified 11/07/24 08:28) Unknown HPI Comments Details: The patient is a 48-year-old male presenting with episodes of transient left- sided numbness and confusion. These episodes began approximately two months ago and are characterized by a sudden onset of numbness starting from the left side of the head, extending to the left foot, with each episode lasting about 40 seconds. The patient reports a concurrent state of confusion during these events but denies any headache or pain. He mentions the occurrence of these symptoms four times, notably once while driving. The temporal nature of the symptoms and lack of pain or headaches are noted. There is a history of multiple MRIs of the brain without any significant findings. The patient?s condition appears stable without progression at the time of this visit. He experiences episodic dizziness, which prompted the need for evaluation. In the conversation, the patient has made me aware of these symptoms and the significance it has on his daily life, highlighting its interference with his general wellbeing. There is specific awareness and recollection of these episodes despite other cognitive distractions. The patient reports a history of peripheral edema in the context of previous use of the antihypertensive medication amlodipine. The swelling was significant in the legs and necessitated a switch from this treatment. Currently, there is no impact indicated on the patient?s neurological status from this past issue. Considering the reported symptoms, further diagnostic monitoring has been planned to obtain a conclusive diagnosis. [facility] Medical History (Updated 12/05/24 @ 14:47 by Conner Teran MD) Umbilical hernia Vitamin D deficiency Vitamin B12 deficiency OAB (overactive bladder) HLD (hyperlipidemia) Hypertension Chronic tension-type headache, not intractable Allergic rhinitis Numbness and tingling of left lower extremity Surgical History (Updated 11/07/24 @ 08:30 by Ilya Chavez CMA) H/O sinus surgery H/O cystoscopy Family History (Updated 11/07/24 @ 08:30 by Ilya Chavez CMA) Father Hypertension Review of Systems Const Details: - Neurological: Reports dizziness, Denies any other neurological symptoms. - Cardiovascular: Denies current peripheral edema, Reports history of peripheral edema related to prior medication use. Physical Exam Neuro Other: Mental Status: Alert and oriented to person, place, and time. Normal attention. Normal spontaneous speech, fluency, and comprehension. No obvious issues with mood and memory. Affect is appropriate. Cranial Nerves: CN II: Visual tamez full to confrontation, visual acuity intact. CN III, IV, : Pupils equal, round, reactive to light and accommodation. Extraocular movements are normal. CN V: Facial sensation is normal. CN VII: Facial movements symmetrical. CN VIII: Hearing intact to bedside conversation is normal. CN IX, X: Palate elevates symmetrically. CN XI: Shoulder shrug and head turn symmetrical. CN XII: Tongue midline without atrophy or fasciculations. Extrapyramidal: Full facial expressions and blinking. No rigidity. Movements are appropriate with no tremor or abnormality. Speech: Normal; no dysarthria or tremor. Assessment & Plan Assessment & Plan (1) Seizure disorder: Comment: Routine EEG at [facility] in Nov 2024: WNL Code(s): G40.909 - Epilepsy, unspecified, not intractable, without status epilepticus Category: Medical Plan Impression: Probably complex partial seizures Rec: a: 48 hr EEG b: Bring CD next time Orders: Orders EEG ambulatory Today G40.909 - Epilepsy, unspecified, not intractable, without status epilepticus Coding Level of Care Code Est Pt Level 4 (01993) Diagnoses Seizure disorder G40.909
--- OUTSIDE RECORDS SUMMARY | 2024-12-05 20:10 | XMS_ITS | Clinical Summary ---
Author Organization [facility] Address [address] [place] [address] Care Team Providers Care Flour Inspector Name Role Phone Abigail Urrutia CAMMY Primary Care Provider [phone] Source Comments PLEASE NOTE, if this patient [...] rhinitis, unspecified allergic rhinitis trigger Place 1 [place] into the nostril(s) once daily 16 g [...] Overview (08/23/2016): =10 mm 08/03/08. Tx at [facility] x 9 months with INH in 2009. Negative CXR 08/16/15 at [facility] Resolved Problems Problem Noted Date Diagnosed Date Resolved Date Elevated LFTs 01/07/2013 06/04/2015 Ingrown left greater toenail 11/10/2012 01/05/2013 Immunizations Immunization Administration Dates Next Due Flu, Preservative Free 12/27/2015 Hep A, adult 03/20/2011,10/23/2008 Hep B, Adult/Adol ([id number]/RECOMBIVAX-ADULT) 08/02/2010,10/23/2008,08/28/2008 INFLUENZA, SEASONAL, INJECTABLE 03/21/2013,12/17 MMR (MMR [...] Plan of Treatment Not on file Insurance [place]ICA[place] Care Teams Flour Inspector Relationship Specialty Start Date End Date Abigail Urrutia FNP [address] [place] [address] PCP - General 10/14/18
--- OUTSIDE RECORDS SUMMARY | 2024-12-05 20:10 | XMS_ITS | Clinical Summary ---
Author Organization [facility] Address [address] [place], [place] [address] Phone Care Team Providers Care Cafe Operator Name Role Phone Mer Campbell MD Primary [...] Not on file Insurance PCP [facility] PCP [employer] NON NSPG PCP [employer] [place] NON NSPG PCP [employer] [place] NON NSPG PCP [employer]CIAL [employer] NON NSPG PCP [facility] [place] [address] [place] [address] NON NSPG PCP [facility] NON NSPG PCP [facility] NON NSPG PCP [facility] [place] [id number] Care Teams Cafe Operator Relationship Specialty Start Date End Date Mer Campbell MD [address] [place] [phone] PCP - General Internal Medicine 02/07/20 Additional Source Comments The information contained in this document represents components of the legal health record. It is not the complete legal health record.[facility]
--- OUTSIDE RECORDS SUMMARY | 2024-12-05 20:10 | XMS_ITS | Clinical Summary ---
Author Organization [facility] [address] [facility] lding Address [address] [place] [address] Phone Care Team Providers Care Balloon Artist Name Role Phone Cheryle Whitman MD Primary [...] 10/04/2024 8:00 AM EDT Office Visit Adult [address] [phone] Lang Mckinley PA Paresthesia of left upper and lower extremity (Primary Dx); Dizziness; Essential hypertension, benign; Hyperlipidemia, unspecified hyperlipidemia type 09/30/2024 Telephone Adult [facility] [address] [place] [phone] Cheryle Whitman MD 09/09/2024 10:30 AM EDT Office Visit [address] [phone] Cheryle Whitman MD Hospital discharge follow-up (Primary Dx); Numbness; Paresthesias; Primary hypertension; Mixed hyperlipidemia 09/06/2024 Telephone Adult [facility] [address] [place] [address] Cheryle Whitman MD from Last 3 Months [...] COMMENT: 08/03/08 - 10 mm. Treated at [facility] x 9 months with INH in 2009. Negative CXR 08/16/15 at [facility] Hydrocele, bilateral 02/03/2018 DX:Hydrocel e, bilateral; [...] PM EDT Office Visit Adult Medicine - [place] [address] [place] [phone] Lang Mckinley PA [address] [place] [address] 01/02/2025 10:30 AM EDT Office Visit General Surgery - [address] [place] [address] Nestor Lima MD [address] [place] [phone] Health Maintenance Due Date Last Done Comments [...] Result [facility] [address] [place] [address], [place] [phone] * (ABNORMAL) Vitamin B2 (09/09/2024 11:07 AM EDT) Pathologist [facility] Vitamin B2 (Riboflavin) 42.2(H) 6.2 - 39.0 nmol/L 09/15/2024 3:05 PM EDT [facility] Comment: Vitamin supplementation within 24 hours prior to blood draw may affect the accuracy of results. This test was developed and its analytical performance characteristics have been determined by [facility], [place]. It has not been cleared or approved by the FDA. This assay has been validated pursuant to the CLIA regulations and is used for clinical purposes. Test Performed by [facility], [facility], [address] [place] [address] Santos Joshi M.D., Ph.D., Director of Laboratories , CLIA [id number] Blood Venous blood specimen / Unknown Venipuncture / Unknown 09/09/2024 11:07 AM EDT 09/09/2024 11:07 AM EDT Cheryle Whitman MD LAB BLOOD ORDERABLES F inal Result [facility] [address] [place] [address] * Vitamin D 25 hydroxy (09/09/2024 11:07 AM EDT) [facility] Vit D, 25-Hydroxy 32.1 30.0 - 80.0 ng/mL LAB CHEMISTRY METHOD 09/09/2024 1:17 PM EDT [facility] Blood Venous blood specimen / Unknown Venipuncture / Unknown 09/09/2024 11:07 AM EDT 09/09/2024 11:07 AM EDT Cheryle Whitman MD LAB BLOOD ORDERABLES F inal Result Performing Organization Address City/[facility] Co de Phone Number [facility] [address] [place] [address], [place] [phone] * Vitamin B1 (09/09/2024 11:07 AM EDT) [facility] Vitamin B1 Whole Blood 79 38 - 122 ug/L 09/14/2024 6:40 AM EDT [facility] Comment: This test was [...] [facility], [address], [place] [address] Patsy Schwarz MD, PhD - Tube Backer Blood Venous blood specimen / Unknown Venipuncture / Unknown 09/09/2024 11:07 AM EDT 09/09/2024 11:07 AM EDT us Cheryle Whitman MD LAB BLOOD ORDERABLES F inal Result [place] [address] * (ABNORMAL) Lipid panel with reflex to [...] sult [facility] [address] [place] [address], [place] [phone] * (ABNORMAL) Comprehensive metabolic panel (05/17/2024 1:36 PM EST) Sodium 139 133 - 145 mmol/L LAB CHEMISTRY METHOD 05/17/2024 3:19 PM [facility] Potassium 3.3(L) 3.5 - 5.5 mmol/L LAB CHEMISTRY METHOD 05/17/2024 3:19 PM [facility] Chloride 104 96 - 110 mmol/L LAB CHEMISTRY METHOD 05/17/2024 3:19 PM [facility] CO2 32 21 - 32 mmol/L LAB CHEMISTRY METHOD 05/17/2024 3:19 PM [facility] Anion Gap 3 3 - 11 LAB CHEMISTRY METHOD 05/17/2024 3:19 PM [facility] Glucose 101(H) 70 - 100 mg/dL LAB CHEMISTRY METHOD 05/17/2024 3:19 PM [facility] BUN 9 5 - 25 mg/dL LAB CHEMISTRY METHOD 05/17/2024 3:19 PM [facility] Creatinine 0.78 0.70 - 1.30 mg/dL LAB CHEMISTRY METHOD 05/17/2024 3:19 PM [facility] eGFR 110 >=60 mL/min/1. 73m2 LAB CHEMISTRY METHOD 05/17/2024 3:19 PM [facility] Comment:Calculation based on the Chronic Kidney Disease Epidemiology Collaboration (CKD-EPI) equation refit without adjustment for race. BUN/Creatinine Ratio 11.5 LAB CHEMISTRY METHOD 05/17/2024 3:19 PM [facility] Calcium 9.4 8.5 - 10.5 mg/dL LAB CHEMISTRY METHOD 05/17/2024 3:19 PM [facility] AST (SGOT) 33 10 - 42 unit/L LAB CHEMISTRY METHOD 05/17/2024 3:19 PM [facility] ALT (SGPT) 88(H) 10 - 60 unit/L LAB CHEMISTRY METHOD 05/17/2024 3:19 PM [facility] Alkaline Phosphatase 133(H) 42 [...] PM EST 05/17/2024 1:36 PM EST us Lagn [facility]O LAB BLOOD ORDERABLES Final Re sult [facility] [address] [place] [address], from Last 3 Months or Most Recently Relevant to Health Maintenance Additional Health Concerns Infection Onset Date Last Indicated Norovirus 05/19/2024 05/19/2024 Insurance [facility] Care Teams Balloon Artist Relationship Specialty Start Date End Date Cheryle Whitman MD [address] [place] [id number] PCP - General Internal Medicine 04/02/21
== END 2024-12-05 14:54 | disposition home or self-care (01) ==
LOC: HO.HSM 14:42
PROVIDERS: PCP Family Medicine; Visit Provider Psychiatry & Neurology Neurology
DX: G40.909 Epilepsy, unspecified, not intractable, without status epilepticus (principal)
CPT/HCPCS: 99214

== ENCOUNTER → 2024-12-05 14:42 | Outpatient (BNVA) | payer OTHER, SELFPAY | PROVIDERS: PCP Family Medicine; Visit Provider Psychiatry & Neurology Neurology | DX: G40.909 Epilepsy, unspecified, not intractable, without status epilepticus (principal); R20.2 Paresthesia of skin; R20.0 Anesthesia of skin; R60.9 Edema, unspecified | CPT/HCPCS: 99212 ==